=== PATIENT | female | born 1995 | race Caucasian/White ===

== ENCOUNTER 2020-01-29 19:01 | Observation (INO) | payer OTHER ==
[2020-01-29] MEDS ORDERED: KETOROLAC 30 MG/ML 1 ML VIAL IVP STA (19:23)
[2020-01-29] MEDS ORDERED: HYDROmorphone 0.5 MG/0.5 ML SYRINGE IVP STA (19:23)
[2020-01-29] MEDS ORDERED: HYDROmorphone 1 MG/ML 1 ML SYRINGE IVP STA (20:15)
--- NOTE | 2020-01-29 21:08 | ED ---
General Adult HPI - General Chief complaint: Vaginal Bleeding Stated complaint: Vaginal Bleeding Time Seen by Provider: 01/29/20 19:05 Source: EMS Mode of arrival: EMS Limitations: no limitations - History of Present Illness Initial comments: 24-year-old female patient presents to the emergency department as a transfer from [facility] for abdominal pain and vaginal bleeding. Patient is approximately 7-8 weeks . She is , first was an elective . Patient states 2 weeks ago she was told by her primary care physician she was around 5-6 weeks . Do not have ultrasound at that time. Around 12:00 this afternoon she started having mild vaginal bleeding which increased in heaviness throughout the day. Patient states she has passed several large clots. She is having a lot of pain to the lower abdomen and to the low back. She did have an ultrasound at [facility] which showed an empty uterus an d normal ovaries. Labs they are revealed normal hemoglobin of 14.0. HCG was 3400. ABO was B+. Upon arrival patient is reporting lower abdominal low back pain. She is reporting some nausea. States that she has soaked through the pad that she put on prior to leaving the other hospital. Patient denies any recent rash, fever, chills, cough, shortness of breath, chest pain, diarrhea, constipation, back pain, numbness, tingling, dizziness, weakness, headache, visual changes, or any other complaints. - Related Data Home Medications Medication Instructions Recorded Confirmed Albuterol Sulfate [Ventolin HFA] 2 puff INHALATION RT-Q4H PRN 01/29/20 01/29/20 Cetirizine HCl 10 mg PO DAILY 01/29/20 01/29/20 Famotidine 20 mg PO BID 01/29/20 01/29/20 Fluticasone Nasal [place] [Flonase 2 spray EA NOSTRIL DAILY 01/29/20 01/29/20 Nasal [place]] Allergies Allergy/AdvReac Type Severity Reaction Status Date / Time No Known Allergies Allergy Verified 01/29/20 23:52 Review of Systems ROS Statement: Those systems with pertinent positive or pertinent negative responses have been documented in the HPI. ROS Other: All systems not noted in ROS Statement are negative. Past Medical History History of Any Multi-Drug Resistant Organisms: None Reported Additional Past Surgical History / Comment(s): Tumor from right breast approx 2 years ago. Past Psychological History: Anxiety Smoking Status: Never smoker Past Alcohol Use History: None Reported Past Drug Use History: None Reported - Past Family History Mother Family Medical History: No Reported History General Exam Limitations: no limitations General appearance: alert, in no apparent distress, other (This is a well- developed, well-nourished adult female patient in no acute distress. Vital signs upon presentation are temperature 97.8F, pulse 91, respirations 18, blood pressure 121/71, pulse ox 100% on room air) Eye exam: Present: normal appearance, PERRL, EOMI. Absent: scleral icterus, conjunctival injection, periorbital swelling ENT exam: Present: normal exam, normal oropharynx, mucous membranes moist Respiratory exam: Present: normal lung sounds bilaterally. Absent: respiratory distress, wheezes, rales, rhonchi, stridor Cardiovascular Exam: Present: regular rate, normal rhythm, normal heart sounds. Absent: systolic murmur, diastolic murmur, rubs, gallop, clicks GI/Abdominal exam: Present: soft, tenderness (suprapubic tenderness), normal bowel sounds. Absent: distended, guarding, rebound, rigid External exam: Present: normal external exam Speculum exam: Present: vaginal bleeding (Moderate, dark red vaginal bleeding. There is one large clot noted in the vaginal vault. ), other (Cervix does appear to be closed.) By manual exam: Present: uterine enlargement. Absent: cervical motion tende rness, adnexal tenderness Neurological exam: Present: alert, oriented X3, CN II-XII intact Psychiatric exam: Present: normal affect, normal mood Skin exam: Present: warm, dry, intact, normal color. Absent: rash Course Vital Signs 01/29/20 01/29/20 01/29/20 19:05 19:52 21:17 Temperature 97.8 F 97.7 F Pulse Rate 91 89 82 Pulse Rate [ Right Sitting Brachial] Respiratory 18 20 18 Rate Blood Pressure 121/71 110/76 118/60 Blood Pressure [Right Arm Sitting] O2 Sat by Pulse 100 96 98 Oximetry 01/29/20 01/30/20 01/30/20 22:59 00:21 00:23 Temperature 96.5 F L 97.8 F Pulse Rate 101 H 102 H Pulse Rate [ 94 Right Sitting Brachial] Respiratory 19 18 18 Rate Blood Pressure 116/72 107/77 Blood Pressure 119/70 [Right Arm Sitting] O2 Sat by Pulse 99 98 99 Oximetry Medical Decision Making - Medical Decision Making 24-year-old female patient percents to the emergency department today for evaluation of vaginal bleeding, abdominal pain. She is approximately 7-8 weeks . , with one elective . She is a transfer from [facility]. We did repeat CBC here which showed a 13.1 hemoglobin. Repeated hCG which was 2500. Ultrasound was obtained and showed thickened endometrium, possible retained products of conception. No sign for gestational sac or adnexal sac. Did discuss the case with on-call residential green building designer Dr. Davenport. Given findings there is concern for threatened . Patient is very uncomfortable and we are having difficulty managing pain so we will admit for pain management. Further evaluatin by Dr. Davenport in the morning. She will remain NPO. - Lab Data Result diagrams: 01/29/20 21:16 Lab Results 01/29/20 01/29/20 01/29/20 Range/Units 21:16 21:16 21:16 WBC 15.1 H (3.8-10.6) k/uL RBC 4.68 (3.80-5.40) m/uL Hgb 13.1 (11.4-16.0) gm/dL Hct 39.2 (34.0-46.0) % MCV 83.8 (80.0-100.0) fL MCH 27.9 (25.0-35.0) pg MCHC 33.3 (31.0-37.0) g/dL RDW 13.2 (11.5-15.5) % Plt Count 224 (150-450) k/uL Neutrophils % 94 % Lymphocytes % 3 % Monocytes % 2 % Eosinophils % 0 % Basophils % 0 % Neutrophils # 14.3 H (1.3-7.7) k/uL Lymphocytes # 0.5 L (1.0-4.8) k/uL Monocytes # 0.3 (0-1.0) k/uL Eosinophils # 0.0 (0-0.7) k/uL Basophils # 0.0 (0-0.2) k/uL HCG, Quant 2535.7 mIU/mL Blood Type B Positive Blood Type Confirm Blood Type Recheck No Previous Record Bld Type Recheck Status CABO Indicated Antibody Screen NEGATIVE Spec Expiration Date 02/01/2020 - 23101/29/20 Range/Units 22:53 WBC (3.8-10.6) k/uL RBC (3.80-5.40) m/uL Hgb (11.4-16.0) gm/dL Hct (34.0-46.0) % MCV (80.0-100.0) fL MCH (25.0-35.0) pg MCHC (31.0-37.0) g/dL RDW (11.5-15.5) % Plt Count (150-450) k/uL Neutrophils % % Lymphocytes % % Monocytes % % Eosinophils % % Basophils % % Neutrophils # (1.3-7.7) k/uL Lymphocytes # (1.0-4.8) k/uL Monocytes # (0-1.0) k/uL Eosinophils # (0-0.7) k/uL Basophils # (0-0.2) k/uL HCG, Quant mIU/mL Blood Type Blood Type Confirm B Positive Blood Type Recheck Bld Type Recheck Status Antibody Screen Spec Expiration Date - Radiology Data Radiology results: report reviewed, image reviewed Ultrasound obtained. Report was reviewed in its entirety. Impression by Dr. Maldonado shows no evidence of intrauterine or extrauterine gestational sac. No adnexal mass. Mild complex thickening of the endometrium could relate to some retained products of blood clot. This could be incomplete . Disposition Clinical Impression: Threatened , Intractable abdominal pain Disposition: ADMITTED IP TO THIS [facility] Condition: Serious Decision to Admit Reason: Admit from EC Decision Date: 01/29/20 Decision Time: 23:50
[2020-01-29 21:42] LABS: Basophils % (A) 0 %; Eosinophils % (A) 0 %; HCT 39.2 % (34.0-46.0); HGB 13.1 gm/dL (11.4-16.0); Lymphocytes # (A) 0.5 k/uL (1.0-4.8); Lymphocytes % (A) 3 %; MCH 27.9 pg (25.0-35.0); MCHC 33.3 g/dL (31.0-37.0); MCV 83.8 fL (80.0-100.0); Monocytes # (A) 0.3 k/uL (0-1.0); Monocytes % (A) 2 %; Neutrophils # (A) 14.3 k/uL (1.3-7.7); Neutrophils % (A) 94 %; Platelet Count 224 k/uL (150-450); RBC 4.68 m/uL (3.80-5.40); RDW 13.2 % (11.5-15.5); WBC 15.1 k/uL (3.8-10.6)
[2020-01-29] MEDS ORDERED: MORPHINE SULFATE 4 MG/ML SYRINGE IVP STA (22:36)
--- NOTE | 2020-01-29 23:12 | US ---
EXAMINATION TYPE: Transabdominal DATE OF EXAM: 01/29/2020 10:56 PM COMPARISON: NONE CLINICAL HISTORY: Heavy bleeding; 7-8 wks . Heavy bleeding x 1 day, pain. Hx ovarian cyst. . EXAM PERFORMED: Transvaginal (TV) and Transabdominal (TA) EXAM MEASUREMENTS: GESTATIONAL AGE / DATING Physician Established: Not yet established Dates by LMP: (10 weeks/4 days) EDC: 08/22/2020 Dates by First Scan: This is first scan Dates by Current Scan for: No IUP seen at this time. MATERNAL ANATOMY Uterus: 10.1 x 7.4 x 7.3 cm. Measures upper limits of normal. Anteverted. Endometrium appears very he terogeneous throughout. Heterogeneous area extends from fundus to cervix and measures approximately: 7.6 x 3.0 x 2.9 cm. Upper endometrium near fundus measures 2.3 cm in AP. Right Ovary: 2.9 x 2.0 x 1.7 cm. Left Ovary: 3.1 x 1.7 x 2.0 cm. Area of mixed echogenicity and peripheral vascularity seen measurin.4 x 1.4 x 1.2 cm. Post CDS / Adnexa: Appear wnl Presence of free fluid: None seen Presence of corpus luteal cyst: Area of mixed echogenicity and peripheral vascularity seen within lef t ovary measurin.4 x 1.4 x 1.2 cm. Presence of subchorionic bleed: No GESTATION / SURVEY IUP: No IUP seen at this time Date of LMP: 11/16/2019 Beta HcG (if available): 2,535.7 IMPRESSION: No evidence of intrauterine or extrauterine gestational sac. No adnexal mass. Mild complex thickening of the endometrium could relate to some retained products and blood clot. This could be incomplete a bortion.
[2020-01-29] MEDS ORDERED: SODIUM CHLORIDE 0.9% 1,000 ML IV SCH (23:45)
[2020-01-29] MEDS ORDERED: ONDANSETRON 4 MG/2 ML VIAL IVP PRN (23:48)
[2020-01-29] MEDS ORDERED: NALOXONE 0.4 MG/ML 1 ML VIAL IV PRN (23:48)
[2020-01-29] MEDS ORDERED: HYDROmorphone 1 MG/ML 1 ML SYRINGE IVP PRN (23:48)
--- NOTE | 2020-01-30 07:50 | P.HPOB ---
History of Present Illness H&P Date: 01/30/20 Chief Complaint: Brisk vaginal bleeding and pain last night. This is a 24-year-old white female 2 para 0010 left menstrual period 11/16/2019 at 10-4/7 weeks by dates. Patient presented through the emergency room last night with bright red brisk vaginal bleeding and clot passage. She was having suprapubic and back pain. Blood type is B+. Quantitative beta hCG was 2537. Patient was admitted for pain control. Ultrasound revealed no adnexal anomalies, no free fluid in the pelvis, heterogenous thickened endometrial tissue. Patient states after midnight, she passed 1 additional large clot in the pain and bleeding completely resolved. This morning she is feeling well. She is hungry. She denies any vaginal bleeding or pain over the past several hours. She would like to be discharged home. Past medical history is negative. Current medications Zyrtec daily. ALLERGIES none known. Social history patient is single, father of the baby Oj is at the bedside. Patient is a nonsmoker. She denies any drug or alcohol use. Past surgical history voluntary termination of 4 years ago. Past gynecologic history menarche began at age 13 with 28 day interval and 3 day duration. There is no history of gonorrhea, chlamydia, HSV or HPV infections. Family history is noncontributory. On exam patient is 5 foot 3 inches, 130 pounds, she is afebrile, vital signs are stable. The general physical exam is within normal limits. Abdomen is soft and nontender. No abdominal or pelvic pain to deep penetration. No rebound or guarding. Extremities are negative. Cervix is closed and firm. Uterus is small, anteverted anteflex, mobile smooth and nontender. Adnexal regions are negative bilaterally. There is no vaginal bleeding on exam at this time. Impression: Suspect complete AB. Blood type B positive. Patient completely asymptomatic and nontender at this time. Plan: I discussed with the patient the option of D&C. At this time we do not feel that that is necessary. Patient will be discharged home, ectopic precautions again are reviewed although my index of suspicion is very well. She will follow-up with a repeat beta hCG in our laboratory and 48 hours, and a lab slip is given. Pelvic rest. Motrin as needed for any cramping or pain. She will follow-up with me in the office in 2 weeks. Again ectopic precautions are reviewed in detail and I feel the patient is at very low risk for ectopic at this time. All questions are answered. Review of Systems Constitutional: Reports as per HPI Past Medical History Past Medical History: No Reported History History of Any Multi-Drug Resistant Organisms: None Reported Additional Past Surgical History / Comment(s): Tumor from right breast approx 2 years ago. Past Anesthesia/Blood Transfusion Reactions: No Reported Reaction Past Psychological History: Anxiety Smoking Status: Never smoker Past Alcohol Use History: None Reported Past Drug Use History: None Reported - Past Family History Mother Family Medical History: No Reported History Medications and Allergies Home Medications Medication Instructions Recorded Confirmed Type Albuterol Sulfate [Ventolin HFA] 2 puff INHALATION RT-Q4H PRN 01/29/20 01/29/20 History Cetirizine HCl 10 mg PO DAILY 01/29/20 01/29/20 History Famotidine 20 mg PO BID 01/29/20 01/29/20 History Fluticasone Nasal [place] [Flonase 2 spray EA NOSTRIL DAILY 01/29/20 01/29/20 History Nasal [place]] Allergies Allergy/AdvReac Type Severity Reaction Status Date / Time No Known Allergies Allergy Verified 01/29/20 23:52 Exam Vital Signs Temp Pulse Pulse Resp BP BP Pulse Ox 01/30/20 04:00 97.2 F L 65 18 109/59 99 01/30/20 00:23 97.8 F 102 H 18 107/77 99 01/30/20 00:21 96.5 F L 94 18 119/70 98 01/29/20 22:59 101 H 19 116/72 99 01/29/20 21:17 82 18 118/60 98 01/29/20 19:52 97.7 F 89 20 110/76 96 01/29/20 19:05 97.8 F 91 18 121/71 100 Intake and Output 01/29/20 01/30/20 01/30/20 22:59 06:59 14:59 Other: Weight 58.967 kg 58.967 kg See dictation under HPI Results Result Diagrams: 01/29/20 21:16 Abnormal Lab Results - Last 24 Hours (Table) 01/29/20 Range/Units 21:16 WBC 15.1 H (3.8-10.6) k/uL Neutrophils # 14.3 H (1.3-7.7) k/uL Lymphocytes # 0.5 L (1.0-4.8) k/uL Assessment and Plan Assessment: History and findings consistent with complete AB Plan: Pelvic rest. Motrin as needed. Repeat beta hCG in 48 hours, lab slip is given. Ectopic precautions thoroughly reviewed. Follow-up with me in the office in 2 weeks. Time with Patient: Greater than 30
[2020-01-30 08:04] VITALS: BP 114/64; PULSE 86; RESP 16; TEMP 98.1
== END 2020-01-30 10:28 | disposition home or self-care (01) ==
LOC: EC 19:01 → 4FBP 23:43
PROVIDERS: ADMIT Obstetrics & Gynecology; ATTEND Obstetrics & Gynecology
DX: N93.9 Abnormal uterine and vaginal bleeding, unspecified (principal); F41.9 Anxiety disorder, unspecified; Z79.899 Other long term (current) drug therapy; Z03.818 Encounter for observation for suspected exposure to other biological agents ruled out
CPT/HCPCS: 96376; 96374; 96375; 99285; 36415; 86900; 86901; 85025; 86850; 84702; 76801; 76817; G0378; U0003; J1885; J1170 ×2

== ENCOUNTER → 2020-01-31 | Outpatient (CLI) | payer OTHER | END | disposition home or self-care (01) | LOC: LABMAIN 15:54 | PROVIDERS: ATTEND Obstetrics & Gynecology | DX: O03.9 Complete or unspecified spontaneous abortion without complication (principal) | CPT/HCPCS: 36415; 84702 ==

== ENCOUNTER 2021-02-12 01:35 | Inpatient (IN) | payer OTHER ==
[2021-02-12] MEDS ORDERED: TERBUTALINE 1 MG/ML VIAL SQ PRN (01:48)
[2021-02-12] MEDS ORDERED: CARBOPROST TROMETHAMINE 250 MCG/ML 1 ML AMP IM PRN (01:48)
[2021-02-12] MEDS ORDERED: OXYTOCIN 10 UNIT/ML 1 ML VIAL IM PRN (01:48)
[2021-02-12] MEDS ORDERED: LIDOCAINE 0.5% (PF) 5 MG/ML (50 ML SDV) SQ PRN (01:48)
[2021-02-12] MEDS ORDERED: PENICILLIN G POTASSIUM 5,000,000 UNIT in DEXTROSE 5% IN WATER 100 ML IVPB STA ×2 (01:48)
[2021-02-12] MEDS ORDERED: METHYLERGONOVINE 0.2 MG/ML 1 ML AMP IM PRN (01:48)
[2021-02-12] MEDS ORDERED: OXYTOCIN 30 UNITS/500 ML NS 30 UNIT in SALINE 1 500ML.BAG IV SCH (02:00)
[2021-02-12] MEDS: LACTATED RINGERS 1,000 ML IV SCH ×5 (02:10→11:47)
[2021-02-12] MEDS: BUTORPHANOL 1 MG/ML 1 ML VIAL IV PRN ×2 (02:49→04:59)
[2021-02-12 03:34] LABS: Anisocytosis Slight; Basophils % (A) 0 %; Eosinophils # (A) 0.1 k/uL (0-0.7); Eosinophils % (A) 0 %; HCT 34.3 % (34.0-46.0); HGB 11.3 gm/dL (11.4-16.0); Hypochromasia Slight; Lymphocytes # (A) 1.9 k/uL (1.0-4.8); Lymphocytes % (A) 10 %; MCH 25.2 pg (25.0-35.0); MCHC 32.8 g/dL (31.0-37.0); MCV 76.6 fL (80.0-100.0); Mean Platelet Volume 8.3; Microcytosis Slight; Monocytes # (A) 0.6 k/uL (0-1.0); Monocytes % (A) 3 %; Neutrophils % (A) 85 %; Platelet Count 260 k/uL (150-450); RBC 4.48 m/uL (3.80-5.40); RDW 17.7 % (11.5-15.5)
[2021-02-12] MEDS: PENICILLIN G POTASSIUM 2,500,000 UNIT in DEXTROSE 5% IN WATER 100 ML IVPB SCH ×6 (06:19→16:44)
[2021-02-12] MEDS ORDERED: SODIUM CHLORIDE 0.9% 100 ML BAG ONE (07:23)
[2021-02-12] MEDS ORDERED: ROPIVACAINE 5MG/ML 20ML VIAL ONE (07:23)
[2021-02-12] MEDS ORDERED: fentaNYL (PF) 50 MCG/ML 5 ML AMP ONE (07:23)
--- NOTE | 2021-02-12 07:36 | P.HPOB ---
History of Present Illness H&P Date: 02/12/21 Chief Complaint: Strong regular uterine contractions This is a 25-year-old female 2 para 0010 EDC 02/05/2021 who presents at 41 weeks gestation. Patient was scheduled for induction for postdates but presents with strong regular uterine contractions at home. Fetus is been active throughout the . She denies vaginal bleeding or fluid leakage. history significant for blood type B+, rubella status immune. Pap smear, VDRL testing, urine culture, hepatitis B surface antigen, HIV testing, gonorrhea and chlamydia cultures all negative. Group B strep cultures positive. One-hour Glucola 84. Past medical history significant for anxiety and migraine headaches. Past surgical history right breast benign tumor excision. Current medications vitamin daily, famotidine 20 mg at bedtime, baby aspirin daily. ALLERGIES none known. Family history significant for hiatal hernia and leukemia. Social history patient is single, boyfriend is involved, she works for [employer]. She denies alcohol tobacco or drug use. On exam patient is 5 foot 3 inches, 200 pounds, vital signs are stable and she is afebrile. General physical exam is within normal limits. heart rate is in the 140s with good overall variability. Cervix is 2 cm dilated, 70% effaced, -2 station, vertex presentation. Impression: 41 week intrauterine , active labor. Positive group B strep cultures, 2 doses of penicillin already received. Epidural being placed. Plan: I will proceed with artificial amniorrhexis. We will consider oxytocin pending clinical progress. Continue penicillin per hospital protocol. Close maternal and surveillance. Anticipate normal spontaneous vaginal delivery. Review of Systems Constitutional: Reports as per HPI Past Medical History Past Medical History: No Reported History History of Any Multi-Drug Resistant Organisms: None Reported Additional Past Surgical History / Comment(s): Tumor from right breast approx 2 years ago. wisdom teeth removal Past Anesthesia/Blood Transfusion Reactions: No Reported Reaction Past Psychological History: Anxiety Additional Psychological History / Comment(s): no medications Smoking Status: Never smoker Past Alcohol Use History: None Reported Past Drug Use History: None Reported - Past Family History Mother Family Medical History: No Reported History Medications and Allergies Home Medications Medication Instructions Recorded Confirmed Type Aspirin [Adult Low Dose Aspirin EC] 1 tab PO DAILY 02/12/21 02/12/21 History Pnv No.95/Ferrous Fum/Folic AC 1 tab PO DAILY 02/12/21 02/12/21 History [ Multivitamin Tablet] Allergies Allergy/AdvReac Type Severity Reaction Status Date / Time No Known Allergies Allergy Verified 01/29/20 23:52 Exam Vital Signs Temp Pulse Resp BP Pulse Ox 02/12/21 01:44 97.5 F L 111 H 16 138/87 99 Intake and Output 02/11/21 02/12/21 02/12/21 22:59 06:59 14:59 Other: # Voids 1 Weight 90.718 kg See dictation under HPI please Results Result Diagrams: 02/12/21 02:59 Abnormal Lab Results - Last 24 Hours (Table) 02/12/21 Range/Units 02:59 WBC 19.0 H (3.8-10.6) k/uL Hgb 11.3 L (11.4-16.0) gm/dL MCV 76.6 L (80.0-100.0) fL RDW 17.7 H (11.5-15.5) % Neutrophils # 16.0 H (1.3-7.7) k/uL Assessment and Plan Assessment: 41 week intrauterine , positive group B strep cultures. Scheduled for induction of labor, presented in active labor. All signs reassuring. Plan: After completion of epidural placement, we will proceed with artificial amniorrhexis. Close maternal and surveillance. Consider oxytocin aug mentation pending clinical progress. Anticipate normal spontaneous vaginal delivery.
[2021-02-12] MEDS: CITRIC ACID-SODIUM CITRATE 15 ML CUP PO ONE ×2 (09:30→11:46)
[2021-02-12] MEDS ORDERED: MORPHINE SULFATE (PF) 0.3 MG/0.3 ML SYR ONE (09:35)
[2021-02-12] MEDS ORDERED: OXYTOCIN 30 UNITS/500 ML NS BAG IV ONE (09:35)
[2021-02-12] MEDS ORDERED: ONDANSETRON 4 MG/2 ML VIAL ONE (09:35)
[2021-02-12] MEDS ORDERED: KETOROLAC 15 MG/ML 1 ML VIAL ONE (09:35)
[2021-02-12] MEDS ORDERED: DEXAMETHASONE SOD PHOSPHATE 10 MG/ML 1 ML VIAL ONE (09:35)
[2021-02-12] MEDS ORDERED: ONDANSETRON 4 MG/2 ML VIAL IVP PRN (10:34)
[2021-02-12] MEDS ORDERED: NALOXONE 0.4 MG/ML 1 ML VIAL IV PRN (10:34)
[2021-02-12] MEDS ORDERED: diphenhydrAMINE 50 MG CAP PO PRN (10:34)
[2021-02-12] MEDS ORDERED: METOCLOPRAMIDE 5 MG/ML 2 ML VIAL IVP PRN (10:34)
[2021-02-12] MEDS ORDERED: diphenhydrAMINE 25 MG CAP PO PRN (10:34)
[2021-02-12] MEDS ORDERED: diphenhydrAMINE 50 MG/ML 1 ML VIAL IVP PRN ×2 (10:34)
[2021-02-12] MEDS ORDERED: ZOLPIDEM 5 MG TAB PO PRN (10:34)
[2021-02-12] MEDS ORDERED: SIMETHICONE 80 MG CHEWABLE PO PRN (10:34)
--- NOTE | 2021-02-12 10:34 | P.OP ---
Date of Procedure: 02/12/21 Preoperative Diagnosis: 41 week gestation, thick meconium-stained fluid, nonreassuring heart tones in the first stage of labor Postoperative Diagnosis: Same, nuchal cord 1, left occiput transverse, liveborn male infant Procedure(s) Performed: Primary low transverse section Anesthesia: epidural Surgeon: Lizbeth Davenport Resource Room Special Education Teacher #1: Lonnie Markham Estimated Blood Loss (ml): 421 IV fluids (ml): 800 Urine output (ml): 400 Pathology: other (Placenta) Condition: stable Disposition: PACU Operative Findings: Liveborn male , scores 9 and 9 at one and 5 minutes respectively, 8 lbs. 14 oz., 4030 g, left occiput transverse position, nuchal cord 1. Description of Procedure: Patient actually presented in early spontaneous labor, having been scheduled for induction for postdates . Artificial amniorrhexis revealed thick meconium-stained fluid, internal scalp lead was applied. In the first stage of labor at 4 cm dilatation, patient was having repetitive late decelerations into the 70s to 80s range. This continued despite oxygen, position changes, and IV resuscitation. Decision was made to proceed with primary low transverse section. Penicillin G was given 2 doses for history of positive group B strep cultures. Kefzol was also given. Patient is brought back to the operating room and the epidural was topped off. Patient is placed in the dorsal supine position with left lateral uterine displacement. Alanis catheter to direct drainage. The appropriate timeout is performed to assure proper patient and procedural identification. Abdomen is prepped and draped in the usual sterile fashion. Analgesia is checked and noted to be adequate. A low transverse skin incision is made in this is carried down through the subcutaneous tissue which is approximate 2 cm deep. Fascia is isolated, scored, extended bilaterally with curved Snow scissors. Peritoneum is next identified and incised, there is no bowel or bladder involvement. The bladder flap is not created as the bladder is well from the operative field. Bladder blade is placed over the dome of the bladder to protect bladder and/or ureterals from injury. A low transverse uterine incision is made in this is extended with blunt dissection. 's head is brought into the incision and the left occiput transverse position. There was a tight nuchal cord that is reduced. The patient is officially delivered of a liveborn male infant at 0953 hours. Umbilical cord is doubly clamped and ligated, he is handed to waiting nurses for evaluation where scores of 9 and 9 at one and 5 minutes respectively are given. Infant weighs 4030 g or 8 lbs. 14 oz. Placentas delivered manually, it is darkly meconium stained, otherwise intact with trivascular cord. It is sent to pathology for evaluation. Uterus is then swept clean with a sterile sponge to avoid any retained products of conception. Uterus is externalized. It is massaged. Oxytocin is given. The edges of the incision are grasped with Castle clamps. Uterus is closed in a two-step fashion, first layer running locking with 0 Vicryl suture. Second layer imbricated with 0 Vicryl suture. E xcellent reapproximation is noted. Tubes and ovaries appear normal bilaterally. Abdomen is suctioned posterior to the uterus with a suction on guard. He placed back into the abdominal cavity. Bilateral gutters are inspected and cleaned. Uterine incision is clean and dry. Peritoneum is allowed to close by secondary intention. Fascia is closed in a running stitch of 0 Vicryl with over ligation in the midline. Subcutaneous tissue is irrigated, clean and dry. It is reapproximated with 3-0 Vicryl in a running stitch. 4-0 Monocryl suture. Steri-Strips and Mastisol are applied to the wound. Alanis is noted to be draining clear urine in the tube. All sponge needle and instrument counts are correct. Dressing is applied to the wound. Patient is brought back to the recovery room in very good condition with stable vital signs including a blood pressure of 132/70, pulse 84, 99% O2 saturation. Patient and her are declining circumcision further infant son.
[2021-02-12] MEDS: ACETAMINOPHEN TAB 500 MG TAB PO SCH ×2 (13:23→20:06)
[2021-02-12] MEDS: IBUPROFEN 600 MG TAB PO SCH ×2 (15:57→23:49)
[2021-02-12 21:05] VITALS: RESP 16
[2021-02-12] MEDS: SENNOSIDES-DOCUSATE SODIUM 1 EACH TAB PO SCH (23:50)
[2021-02-13] MEDS: LACTATED RINGERS 1,000 ML IV SCH ×2 (02:51→03:09)
[2021-02-13] MEDS: ACETAMINOPHEN TAB 500 MG TAB PO SCH ×4 (03:45→23:39)
[2021-02-13 07:01] LABS: Anisocytosis Slight; Basophils % (A) 0 %; Eosinophils % (A) 0 %; HCT 28.2 % (34.0-46.0); Hypochromasia Moderate; Lymphocytes # (A) 1.9 k/uL (1.0-4.8); Lymphocytes % (A) 9 %; MCH 25.1 pg (25.0-35.0); MCV 78.4 fL (80.0-100.0); Mean Platelet Volume 8.7; Microcytosis Slight; Monocytes # (A) 0.8 k/uL (0-1.0); Monocytes % (A) 4 %; Neutrophils # (A) 18.5 k/uL (1.3-7.7); Neutrophils % (A) 85 %; Platelet Count 216 k/uL (150-450); RBC 3.59 m/uL (3.80-5.40); RDW 17.9 % (11.5-15.5); WBC 21.6 k/uL (3.8-10.6)
--- NOTE | 2021-02-13 08:06 | P.PN ---
Subjective Progress Note Date: 02/13/21 Principal diagnosis: Doing well postoperative day #1 Negative flatus. No nausea, pain well controlled, no other complaints. Objective - Vital Signs Vital signs: Vital Signs Temp 98.1 F 02/13/21 03:50 Pulse 102 H 02/13/21 03:50 Resp 16 02/13/21 03:50 BP 113/66 02/13/21 03:50 Pulse Ox 98 02/13/21 03:50 Intake & Output 02/12/21 02/13/21 02/13/21 18:59 06:59 18:59 Output Total 1921 900 Balance -1920 -900 Output: Urine 1500 900 Uretheral (Alanis) 500 Estimated Blood Loss 421 Other: Voiding Method Indwelling Catheter # Voids 1 1 - Constitutional General appearance: Present: average body habitus, cooperative - EENT Eyes: Present: PERRLA ENT: Present: hearing grossly normal - Neck Neck: Present: normal ROM Thyroid: bilateral: normal size - Respiratory Respiratory: bilateral: CTA - Cardiovascular Rhythm: regular - Gastrointestinal General gastrointestinal: Present: normal bowel sounds - Integumentary Integumentary: Present: normal - Neurologic Neurologic: Present: CNII-XII intact - Musculoskeletal Musculoskeletal: Present: gait normal, strength equal bilaterally - Psychiatric Psychiatric: Present: A&O x's 3, appropriate affect, intact judgment & insight - Labs CBC & Chem 7: 02/13/21 06:40 Labs: Abnormal Lab Results - Last 24 Hours (Table) 02/13/21 Range/Units 06:40 WBC 21.6 H (3.8-10.6) k/uL RBC 3.59 L (3.80-5.40) m/uL Hgb 9.0 L D (11.4-16.0) gm/dL Hct 28.2 L (34.0-46.0) % MCV 78.4 L (80.0-100.0) fL RDW 17.9 H (11.5-15.5) % Neutrophils # 18.5 H (1.3-7.7) k/uL Assessment and Plan Assessment: Doing well postoperative day #1 Plan: Advance diet and activity. Continue postoperative care. Likely discharge home tomorrow. Time with Patient: Less than 30
[2021-02-13] MEDS: IBUPROFEN 600 MG TAB PO SCH ×4 (08:28→20:25)
[2021-02-13] MEDS: SENNOSIDES-DOCUSATE SODIUM 1 EACH TAB PO SCH ×2 (08:28→20:25)
--- NOTE | 2021-02-13 08:53 | P.PN ---
Progress Note - Text Postop day 1 from under spinal anesthesia with intrathecal morphine given for postop pain management. Patient is doing well. Pain is well controlled. On visual analog scale 4/10 Mild itching present No nausea or vomiting reported. No Headache or weakness and numbness in the legs. No complications from spinal anesthesia.
[2021-02-14] MEDS: IBUPROFEN 600 MG TAB PO SCH ×2 (03:03→09:00)
[2021-02-14] MEDS: ACETAMINOPHEN TAB 500 MG TAB PO SCH ×2 (06:08→11:44)
[2021-02-14] MEDS: SENNOSIDES-DOCUSATE SODIUM 1 EACH TAB PO SCH (09:12)
[2021-02-14 09:15] VITALS: BP 124/64; PULSE 98; TEMP 97.7
== END 2021-02-14 12:00 | disposition home or self-care (01) | DRG 787 ==
LOC: 4FBP 01:35
PROVIDERS: ADMIT Obstetrics & Gynecology; ATTEND Obstetrics & Gynecology
PROC: 10D00Z1 Extraction of Products of Conception, Low, Open Approach (ICD-10-PCS; principal; 2021-02-12 09:45)
DX: O48.0 Post-term pregnancy (principal); O98.82 Other maternal infectious and parasitic diseases complicating childbirth; O69.81X0 Labor and delivery complicated by cord around neck, without compression, not applicable or unspecified; O76 Abnormality in fetal heart rate and rhythm complicating labor and delivery; O77.0 Labor and delivery complicated by meconium in amniotic fluid; O99.344 Other mental disorders complicating childbirth; F41.9 Anxiety disorder, unspecified; Z37.0 Single live birth; Z3A.41 41 weeks gestation of pregnancy; Z79.82 Long term (current) use of aspirin; Z80.6 Family history of leukemia; B95.1 Streptococcus, group B, as the cause of diseases classified elsewhere; O99.824 Streptococcus B carrier state complicating childbirth
CPT/HCPCS: 85025; 86850; 86900; 86901